=== PATIENT | male | born 1990 | race Caucasian/White ===

== ENCOUNTER 2020-05-26 09:21 | Day surgery (SDC) | payer MEDICAID, SELFPAY ==
[2020-05-26] VITALS (8 sets, daily range): BP systolic 107–128; BP diastolic 73–88; PULSE 72–90; RESP 16–18; TEMP 36.2–36.5; O2SAT 94–100; BMI 26.3
[2020-05-26] MEDS: Lactated Ringers 1,000 ML 100 ML IV (10:00)
--- NOTE | 2020-05-26 11:00 | RAD_ITS ---
STUDY: X-RAY - RIGHT HAND REASON FOR EXAM: Male, 30 years old. Repair of metacarpal fracture. TECHNIQUE: 6 intraoperative digital documentation view(s) of the hand. COMPARISON: None. FINDINGS: Dorsal plate and screw fixation of the fourth metacarpal which is in anatomic alignment without complications. RAD/Hand Min 3 Views IMPRESSION: Intraoperative digital documentation images. Electronically Signed: Ryan Ivy MD at 13:09 EST , Service support ,
[2020-05-26] MEDS: Cefazolin 2 GM in 0.9% Normal Saline 100 ML IV (11:04)
--- NOTE | 2020-05-26 12:17 | OP.PCM_ITS ---
Report of Operation Date of Procedure: 05/26/20 Pre-Operative Diagnosis: Displaced right 4th metacarpal fracture Post-Operative Diagnosis: same Surgery/Procedure Performed:: ORIF right 4th MC fracture accelerator technician: Ryan Stroud Type of Anesthesia:: General Anesthesiologist: Nick Mcguire - Admit VTE Documentation VTE Present on Admission: No VTE Mechan Device Prophylaxis: SCD's, Thigh High CELINA Hose VTE Pharm Prophylaxis ordered?: No Reason prophylaxis not ordered:: Treatment Not Indicated
[2020-05-26] MEDS: HYDROcodone Bitartrate/Apap 5/325 Tablet PO (13:48)
== END 2020-05-26 15:09 | disposition home or self-care (01) ==
LOC: SDC 09:22 → AC 09:22
PROVIDERS: PCP Family Medicine; Referring Provider Orthopaedic Surgery; Visit Provider Orthopaedic Surgery
PROC: (CPT 26615; principal; 2020-05-26 10:45)
DX: S62.314A Displaced fracture of base of fourth metacarpal bone, right hand, initial encounter for closed fracture (principal); F17.210 Nicotine dependence, cigarettes, uncomplicated; E66.3 Overweight; Z68.26 Body mass index [BMI] 26.0-26.9, adult; Z20.828 Contact with and (suspected) exposure to other viral communicable diseases
CPT/HCPCS: 01830; 26615; 73130; 76000; 87426; C1713; C9803; J7120; J2405

== ENCOUNTER 2020-10-14 11:14 | Emergency (ER) | payer MEDICAID, SELFPAY ==
[2020-05-26 09:54] VITALS: BMI 26.3
[2020-10-14 11:16] VITALS: BP 119/75; PULSE 113; RESP 16; TEMP 36.8; O2SAT 98; BMI 25.0
--- NOTE | 2020-10-14 11:52 | ED.VIS.GEN ---
History of Present Illness Chief Complaint: Cold Sx Informant: Patient Onset: Days - 2 Days Context: Gradual Onset Current Severity: Mild Maximum Severity: Moderate Narrative: Patient presents with 2-day history of cough and congestion with body aches. He has had subjective fevers. He reports loss of taste. He has not been eating or drinking. He is concerned that he has Covid but denies any known exposures. Past Medical History - Allergies and Home Meds Allergies/Adverse Reactions: Allergies No Known Allergies Allergy (Verified 10/14/20 11:16) Primary Care Physician: Homero De La Cruz MD [NON-STAFF] - Past Medical History: None Smoking Status: Current every day smoker Review of Systems General: Reports: Fever, Subjective Eyes: Denies: Visual changes - bilaterally ENT: Reports: - - Congestion and loss of taste. Denies: Bilateral ear pain Cardiovascular: Denies: Chest pain Respiratory: Reports: Cough. Denies: Dyspnea, Sputum Gastrointestinal: Denies: Abdominal pain, Vomiting, Diarrhea Genitourinary: Denies: Dysuria Musculoskeletal: Reports: Myalgias Skin: Denies: Rash Neurological: Denies: Parasthesia, Numbness Hematologic: Denies: Easy bruising, Easy bleeding Allergy: Denies: Uticaria Physical Exam Vital Signs/Narrative: Vital Signs Temp Pulse Resp BP Pulse Ox 10/14/20 11:16 98.2 F 113 H 16 119/75 98 Inital Vital Signs reviewed: Yes General: Well nourished, Well developed ENT: Moist mucous membranes Neck: Supple Cardiovascular: Regular rate, Regular rhythm Respiratory: No distress, CTA bilaterally Abdomen: Soft, Nontender Extremities: Nontender Skin: Normal color Neurological: Alert, Oriented x3 Psychological: Normal affect Diagnostic/Tx/Re-eval Chest X-Ray - ED: 1 View, Read by ED Physician, Normal, Heart, Lungs, Mediastinum - Medical Decision Making Portable chest x-ray per my interpretation reveals no evidence of pneumonia. Covid swab is sent. Patient wishes for discharge and he will be texted the test results. Addendum: Patient reportedly eloped from emergency department prior to getting his Covid swab and any discharge paperwork. ED Disposition - Plan for ED Patient: Disposition: Home or Assisted Living Diagnosis: Viral syndrome Instructions: Coronavirus Disease 2019 (COVID-19): Overview, ED Viral Syndrome (Adult) Referrals: Homero De La Cruz MD [NON-STAFF] -
--- NOTE | 2020-10-14 12:35 | RAD_ITS ---
STUDY: X-RAY CHEST REASON FOR EXAM: Male, 30 years old. Cough TECHNIQUE: Single AP portable view of the chest. COMPARISON: None. FINDINGS: The lungs are clear and expanded. There is no demonstrated pleural abnormality. Normal size heart. Normal mediastinum and [place]. Normal visualized pulmonary arteries. Normal visualized aortic arch and descending thoracic aorta. Normal visualized thoracic spine. Normal visualized ribs, clavicles, and shoulders. There is no demonstrated abnormality of the visualized soft tissue structures of the upper abdomen. RAD/Chest 1 View (Portable) IMPRESSION: Normal x-ray examination of the chest. Electronically Signed: Yinka Morgan MD at 13:02 EDT , Service support ,
== END 2020-10-14 13:42 | disposition home or self-care (01) ==
PROVIDERS: Emergency Provider Emergency Medicine
DX: B34.9 Viral infection, unspecified (principal); F17.200 Nicotine dependence, unspecified, uncomplicated
CPT/HCPCS: 71045; 99281

== ENCOUNTER 2021-04-28 10:50 | Emergency (ER) | payer MEDICAID, SELFPAY ==
[2021-04-28 10:51] VITALS: BP 112/63; PULSE 106; RESP 18; TEMP 35.7; O2SAT 97; BMI 26.4
--- NOTE | 2021-04-28 11:01 | ED.VIS.LOWEX ---
HPI History of Present Illness Chief Complaint: Edema Narrative Narrative: 31-year-old male presenting with right knee swelling. He states this is been ongoing for about a month. 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 He states he has been wearing kneepads on both knees. He has no problem with the left knee. Patient states that the swelling is actually improved. He states that the skin is not warm or hot. He is able to ambulate. No systemic signs or symptoms. PFSH PFSH Home Medications oxycodone-acetaminophen 1 - 2 tab PO Q6H PRN PRN 05/22/20 [History Last Taken Unknown] Allergy/AdvReac Type Severity Reaction Status Date / Time No Known Allergies Allergy Verified 04/28/21 10:52 Social History Smoking Status: Current every day smoker tobacco type: cigarettes ROS ROS ED Constitutional Constitutional ED: Denies chills or fever(s) Eyes Eyes: Denies blurry vision or change in vision ENT ENT ED: Denies rhinorrhea or sore throat Cardiovascular Cardiovascular: Denies chest pain or palpitations Respiratory/Chest Respiratory/Chest: Denies cough, dyspnea or sputum Gastrointestinal Gastrointestinal: Denies abdominal pain, nausea or vomiting Genitourinary Genitourinary ED: Denies dysuria or hematuria Musculoskeletal Musculoskeletal: Reports other Details: Right knee pain and swelling Integumentary Denies Abrasions or rash Neurologic Neurologic: Denies headache(s) or paresthesias EXAM Physical Exam Const Vital Signs: 04/28/21 10:51 Temperature 96.3 F L Temperature Source Temporal Pulse Rate 106 H Respiratory Rate 18 Blood Pressure 112/63 Blood Pressure Mean 79 Pulse Ox 97 Oxygen Delivery Method Room Air Positive well nourished HEENT normocephalic and atraumatic Resp normal respiratory effort Cardio regular rate and regular rhythm Extremity Extremity Narrative: Right knee: Swelling noted to the patellar region. No erythema or warmth. Patient has full range of movement of the right knee. No ligamentous laxity. Neuro oriented x3 Sensorium / Orientation: alert MDM MDM MDM Narrative Medical decision making narrative: Patient has mild bursitis to the right knee. I find no signs or symptoms of infection in the knee. He is counseled to use compression for this and he can follow-up outpatient with his orthopedic surgeon Dr. Espinosa if not improving. He is given return precautions. Patient stable discharge. Impression: 1. Right knee bursitis. Discharge Plan Triage Chief Complaint: Edema ED Provider: Justin Bean Dx/Rx/DC Orders Instructions: ED Bursitis Prescriptions: No Action oxycodone-acetaminophen 1 TABLET tablet 1 - 2 tab PO Q6H PRN PRN (Reason: Pain) RF: 0 Primary Care Provider: Care Physician,No Primary Referrals: Valentin Espinosa, [STAFF PHYSICIAN] - As Needed Care Physician,No Primary [Primary Care Provider] - Disposition Disposition: Home, Self Care
--- NOTE | 2021-04-28 11:10 | ED.RN ---
Patient states he just needs to lt his ride know he is waiting on registration and papers for discharge and will be out in 5-10 minutes. Patient went toward waiting room and did not return.
== END 2021-04-28 11:12 | disposition home or self-care (01) ==
LOC: ED 11:11
PROVIDERS: Emergency Provider Student in an Organized Health Care Education/Training Program
DX: M70.51 Other bursitis of knee, right knee (principal); F17.210 Nicotine dependence, cigarettes, uncomplicated
CPT/HCPCS: 99282

== ENCOUNTER 2021-07-13 23:10 | Emergency (ER) | payer MEDICAID, SELFPAY ==
[2021-07-13 23:11] VITALS: BP 159/85; PULSE 87; RESP 16; TEMP 35.9; O2SAT 100; BMI 24.3
--- NOTE | 2021-07-13 23:29 | EX.ED.UPPERE ---
HPI History of Present Illness Chief Complaint: Laceration Detail of Chief Complaint: Left hand x2 Informant: patient Occured/Mechanism Mechanism/Context: Yes injury Onset/Context/Timing Onset: Today and Hours Context: Sudden Onset Timing: Continuous Quality of Pain: Sharp Current Severity: Mild Maximum Severity: Mild Associated Symptoms Associated Symptoms: Negative for Parasthesia, Weakness and Loss of Funtion Narrative Narrative: 31-year-old male laceration to his left index finger and left dorsum of his hand about an hour ago when he hit it on a piece of metal at home. No other injuries. He is right-hand dominant. He is confident he had a tetanus shot within the last 5 years. Tetanus Immunization: <5 years Prior similar symptoms: No Recent Illness/Hospitalization: No PFSH PFSH Medical History no medical history no medical history Home Medications oxycodone-acetaminophen 1 - 2 tab PO Q6H PRN PRN 05/22/20 [History Last Taken Unknown] Allergy/AdvReac Type Severity Reaction Status Date / Time No Known Allergies Allergy Verified 04/28/21 10:52 Social History Smoking Status: Current every day smoker tobacco type: cigarettes ROS ROS ED ROS Narrative Denies recent illness. Review of Systems ROS Unobtainable: Denies due to encephalopathy Constitutional Constitutional ED: Denies fever(s) Eyes Eyes: Denies change in vision ENT ENT ED: Denies ear pain Cardiovascular Cardiovascular: Denies chest pain Respiratory/Chest Respiratory/Chest: Denies cough or dyspnea Gastrointestinal Gastrointestinal: Denies abdominal pain, diarrhea, nausea or vomiting Genitourinary Genitourinary ED: Denies dysuria Musculoskeletal Musculoskeletal: Denies myalgias Integumentary Denies rash Neurologic Neurologic: Denies headache(s) Psychiatric Psychiatric: Denies depression Endocrine Endocrinology: Denies polyuria Hematologic/Lymphatic Hematologic/Lymphatic: Denies easy bruising Allergic/Immunologic Allergic/Immunologic ED: Denies urticaria EXAM Physical Exam Narrative Exam Narrative: 31-year-old male no acute distress vital signs stable afebrile. HEENT exam unremarkable. Neck nontender. Lungs clear to auscultation. Heart regular rhythm no murmur. Chest nontender. Abdomen nontender. Back nontender. Extremities moves all 4. Neurovascular intact. Left hand there is a laceration on the radial side of left index finger on the proximal phalanx that will need suture repaired. Also on the dorsum of his left hand in the webspace between the index and thumb. He has full flexion extension of the hand. Normal touch sensation. Cap refill. There is no foreign body or signs of infection. Otherwise exam unremarkable. Const Vital Signs: 07/13/21 23:11 Temperature 96.6 F L Temperature Source Temporal Pulse Rate 87 Respiratory Rate 16 Blood Pressure 159/85 H Blood Pressure Mean 109 Pulse Ox 100 Oxygen Delivery Method Room Air Positive well nourished and well developed; Negative for obese, cachectic, contractures or unkempt General Appearance ED: well developed and NAD; Negative for unkempt, cachectic, contractures, cyanotic or diaphoretic Nutritional Appearance: Negative for cachectic or obese HEENT Reports moist mucous membranes normocephalic; Negative for atraumatic, trauma or tenderness Eyes PERRL and EOMs intact bilaterally Neck full ROM and supple General: Negative for tenderness Chest Wall inspection of chest normal and palpation of chest normal Resp normal respiratory effort and clear to auscultation bilaterally Effort and Inspection: Negative for pain with movement Auscultation: Negative for rales, rhonchi, wheezes or diminished lung sounds Cardio regular rate, regular rhythm, S1 normal heart sound, S2 normal heart sound and no murmurs GI non-tender, non-distended and no masses Inspection: Negative for abdominal distention Auscultation: normoactive bowel sounds; Negative for hyperactive bowel sounds Palpation: soft; Negative for tender or rebound tenderness present Back/Spine no CVA tenderness General Back: Negative for CVA tenderness Cervical Spine: Negative for cervical spine tenderness Thoracic Spine / Upper Back: Negative for thoracic spinal tenderness Lumbar Spine / Lower Back: Negative for lumbar spinal tenderness Extremity normal to inspection and full ROM Extremity Narrative: Left hand laceration of the index finger on the radial side of the proximal phalanx. And also on the dorsum in the webspace between the thumb and index finger. Full range of motion and neurovascular intact. General Extremety ED: Negative for edema or other findings General Extremity: Negative for edema or other findings Neuro oriented x3, moves all extremities and no focal motor deficits Sensorium / Orientation: alert, oriented to person, oriented to place and oriented to time; Negative for orientation impaired, lethargic or stuporous Psych mental status grossly normal Appearance: Negative for unkempt Attitude: No agitated Mood & Affect: Negative for depressed, anxious or tearful Skin Lesions: no lesions Rashes: no rashes Trauma: laceration; Negative for no lacerations or abrasions MDM MDM MDM Narrative Medical decision making narrative: 31-year-old male 2 lacerations to the left hand one of the proximal phalanx of the left index finger and one of the dorsum of the left hand by the webspace of the index and long finger. No foreign bodies noted. Area be cleaned. Washed and explored. Locally anesthetized and closed using 5-0 Ethilon. Patient will be instructed on wound care and suture removal in 10 days. Procedures Lacerations Left index finger laceration: Length: 0.79 in Depth: Skin Shape: Linear Prep: Sterile Conditions and Shure-Clens Laceration repair: Irrigated, Lidocaine and Local Number of Sutures/Mehdi: 3 Suture Information: Ethilon and 5-0 Laceration #2 Dorsum of the left hand: Length: 1.18 in Depth: Skin Shape: Linear Prep: Sterile Conditions and Shure-Clens Laceration repair: Irrigated and Local Number of Sutures/Mehdi: 4 Suture Information: Ethilon and 5-0 Comment: 2 lacerations both repaired. First laceration of the left index finger proximal phalanx radial side. Local anesthetized lidocaine. Washed with saline, explored irrigated and closed using 5-0 Ethilon suture. Laceration #2 of the dorsum of the left hand. Proximately 3 cm. Locally anesthetized with lidocaine. Washed with Shur-Clens irrigated with saline and explored. Closed using 5-0 Ethilon suture. Proper hemostasis wound closure obtained of both lacerations. Patient tolerated procedure well. He was instructed on wound care. Discharge Plan Triage Chief Complaint: Laceration ED Provider: Trever Stinson Dx/Rx/DC Orders Clinical Impression: Laceration of left hand Instructions: ED Laceration, Hand: All Closures Prescriptions: No Action oxycodone-acetaminophen 1 TABLET tablet 1 - 2 tab PO Q6H PRN PRN (Reason: Pain) RF: 0 Primary Care Provider: Care Physician,No Primary Referrals: Miah Longoria MD [STAFF PHYSICIAN] - 10 Day for suture removal Care Physician,No Primary [Primary Care Provider] - Activity Restrictions/Additional Instructions: Keep hand dry and clean. You may get it wet but no soaking in any water or any other fluids. Clean daily with soap and water or peroxide and water and apply antibiotic ointment. Tylenol and Motrin for pain. Watch for any signs of infection such as redness, significant swelling, streaks, fever or pus is seen return. Suture removal in 10 days. Disposition Disposition: Home, Self Care
[2021-07-13] MEDS: Lidocaine 1% (20 ml mdv) 20 ML Vial 10 ML INFILT (23:34)
[2021-07-14 00:07] VITALS: BP 140/78; PULSE 88; RESP 17; O2SAT 97
== END 2021-07-14 00:07 | disposition home or self-care (01) ==
LOC: ED 07-14 00:03
PROVIDERS: Emergency Provider Emergency Medicine; Visit Provider Emergency Medicine
DX: S61.412A Laceration without foreign body of left hand, initial encounter (principal); F17.210 Nicotine dependence, cigarettes, uncomplicated; X58.XXXA Exposure to other specified factors, initial encounter
CPT/HCPCS: 12001; 99284

== ENCOUNTER → 2025-02-22 | Outpatient (CLI) | payer MEDICAID, SELFPAY ==
[2025-02-22 12:28] LABS: Prothrombin Time (Protime)PT. 12.6 SECONDS (11.7-14.9)
[2025-02-22 12:48] LABS: Hematocrit 45.3 % (40-54); Hemoglobin 15.9 g/dL (13.0-16.5); Immature Granulocytes Count 0.030 X10^3/uL (0.0-0.0); Mean Corp Hgb Conc 35.1 g/dL (32-36); Mean Corpuscular Volume 87.8 fL (80-94); Mean Platelet Vol. 9.2 fl (6.2-12.0); NRBC Flagged by Analyzer 0 % (0-5); Platelet Count 354 K/mm3 (150-450); RBC Distribution Width CV 11.9 % (11.6-14.6); RBC Distribution Width SD 38.3 fl (35.1-43.9); Red Blood Count 5.16 M/mm3 (4.6-6.2); White Blood Count 6.5 K/mm3 (4.4-11.0)
[2025-02-22 13:38] LABS: AST(SGOT) 73 U/L (<=37); Alanine Aminotransfer ALT/SGPT 127 U/L (<=46); Albumin, Serum 4.3 g/dL (3.5-5.0); Alkaline Phosphatase 84 U/L (40-129); Anion Gap 14 (5-15); BUN 16 mg/dL (4-19); BUN/Creat Ratio 19.5 RATIO (10-20); Calcium,Total 9.6 mg/dL (7.6-11.0); Carbon Dioxide 21.6 mmol/L (21.0-32.0); Chloride 102 mmol/L (98-108); Globulin 2.8 g/dL (2.2-4.2); Glucose 118 mg/dL (70-99); HIV Nonreactive (Nonreactive); Hepatitis B Surface Antigen Nonreactive (Nonreactive); Potassium 4.0 mmol/L (3.3-5.1)
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
[2025-02-25 19:07] LABS: HCV Quant. RNA PCR 1140000 IU/mL (.)
== END | disposition home or self-care (01) ==
LOC: LAB 11:25
PROVIDERS: Referring Provider Family Medicine; Visit Provider Family Medicine
DX: B18.2 Chronic viral hepatitis C (principal)
CPT/HCPCS: 36415; 80053; 85025; 85610; 86703; 86706; 86708; 87340; 87522; 87902